=== PATIENT | male | born 1995 | race Caucasian/White ===

== ENCOUNTER 2019-10-05 18:28 | Emergency (ER) | payer OTHER ==
--- NOTE | 2019-10-05 19:18 | EDM.PDOC ---
ED HPI GENERAL MEDICAL PROBLEM - General Chief Complaint: Lower Extremity Injury/Pain Stated Complaint: INJURY TO R FOOT Time Seen by Provider: 10/05/19 18:30 Source of Information: Reports: Patient History Limitations: Reports: No Limitations - History of Present Illness INITIAL COMMENTS - FREE TEXT/NARRATIVE: Patient comes into the emergency department with complaint of a right ankle injury. Was unloading a piece of equipment from the back of his pickup and ended up tripping over a hose and falling onto the ground. He states that his foot hyperflexed. States that he felt a popping sensation right away. Unable to bear weight afterwards. That the pain is more severe if he tries to place any weight on it or move it. Discomfort is noted when resting. He denies any missed or tingling of the right leg. He has limited range of motion due to the pain and discomfort. Patient denies any injuries to that ankle previously. He has no other concerns or complaints. Onset: Sudden Location: Reports: Lower Extremity, Right Quality: Reports: Throbbing Severity: Moderate Improves with: Reports: Rest Worsens with: Reports: Movement Context: Reports: Activity Associated Symptoms: Reports: No Other Symptoms Right Foot Pain Score (Numeric/FACES): 6 - Related Data Allergies Allergy/AdvReac Type Severity Reaction Status Date / Time No Known Allergies Allergy Verified 10/05/19 19:04 Home Meds: Home Meds . [No Known Home Meds] 10/05/19 [History] Past Medical History Other Psychiatric History: insomnia Social & Family History - Tobacco Use Smoking Status *Q: Never Smoker Review of Systems - Review of Systems Review Of Systems: See Below Constitutional: Reports: No Symptoms Eyes: Reports: No Symptoms Ears: Reports: No Symptoms Nose: Reports: No Symptoms Mouth/Throat: Reports: No Symptoms Respiratory: Reports: No Symptoms Cardiovascular: Reports: No Symptoms GI/Abdominal: Reports: No Symptoms Genitourinary: Reports: No Symptoms Musculoskeletal: Reports: No Symptoms Skin: Reports: No Symptoms ED EXAM, GENERAL - Physical Exam Exam: See Below Exam Limited By: No Limitations General Appearance: Alert, WD/WN, No Apparent Distress Eye Exam: Bilateral Eye: EOMI, PERRL Head: Atraumatic, Normocephalic Neck: Normal Inspection, Supple, Non-Tender, Full Range of Motion Respiratory/Chest: No Respiratory Distress, Lungs Clear, No Accessory Muscle Use , Chest Non-Tender Cardiovascular: Normal Peripheral Pulses, Regular Rate, Rhythm Extremities: Limited Range of Motion (right ankle- swelling, limited range of motion due to pain. CMS intact) Neurological: Alert, Oriented, Normal Gait Psychiatric: Normal Affect, Normal Mood Skin Exam: Warm, Dry, Intact, Normal Color Course - Vital Signs Last Recorded V/S: Last Vital Signs Temp 37.5 C 10/05/19 18:35 Pulse 90 10/05/19 18:35 Resp 16 10/05/19 18:35 BP 145/80 H 10/05/19 18:35 Pulse Ox 98 10/05/19 18:35 Departure - Departure Time of Disposition: 20:00 Disposition: Home, Self-Care 01 Condition: Good Clinical Impression: Metatarsal bone fracture Qualifiers: Encounter type: initial encounter Metatarsal bone: fifth Fracture type: closed Fracture alignment: displaced Laterality: right Qualified Code(s): S92.351A - Displaced fracture of fifth metatarsal bone, right foot, initial encounter for closed fracture - Discharge Information *PRESCRIPTION DRUG MONITORING PROGRAM REVIEWED*: Not Applicable *COPY OF PRESCRIPTION DRUG MONITORING REPORT IN PATIENT KERRIE: Not Applicable Instructions: Metatarsal Fracture Referrals: Taylor Ochoa PA-C [Primary Care Provider] - Forms: ED Department Discharge Additional Instructions: 1. Rest 2. Wear cam boot and remain non weightbearing until released from orthopedic speciality 3. Can use Tylenol and Ibuprofen as needed for pain and discomfort 4. Diet as tolerated 5. Activity as tolerated 6. Elevated the injured area above the level of the heart to decrease swelling and discomfort. 7. Use ice 3-4 times a day at 20-minute intervals to help with any swelling and discomfort 8. Follow-up with Orthopedic speciality in one week for a acute slightly displace avulsion fracture at the base of the 5th metatarsal 9. Follow with any questions or concerns 10. Discharge information has been provided regarding your injury Sepsis Event Note - Evaluation Sepsis Screening Result: No Definite Risk - Focused Exam Vital Signs: Vital Signs Temp Pulse Resp BP Pulse Ox 10/05/19 18:35 37.5 C 90 16 145/80 H 98 Date Exam was Performed: 10/05/19 Time Exam was Performed: 20:08 - Assessment/Plan Assessment:: 1. right 5th metatarsal fracture Plan: 1. X-ray completed in the emergency department results reviewed with the patient 2. Ice Applied to the affected limb 3. Medication offered to the patient 4. Education regarding splinting, activity, [id number] medications, and follow-up care provided. 5. All questions and concerns addressed with the patient prior to discharge 6. Cam boot applied to right lower extremity. Pt has crutches at home he will use.
--- NOTE | 2019-10-05 19:56 | CR ---
[id number] RAD/RAD Foot Right 3V Min Exam: RAD Foot Right 3V Min Indication:FALL INJURY Comparison: No prior imaging for comparison. Discussion: Acute avulsion fracture at the base of the 5th metatarsal. There is an 8 mm of separation at the fracture site. Fragment is also displaced laterally 7 mm. No other fractures identified. No dislocation. Impression: Acute slightly displaced avulsion fracture at the base of the 5th metatarsal. Chris Llanos MD 10/05/191954 Thank you for allowing us to participate in the care of your patient.
[2019-10-05] MEDS ORDERED: Take Home: Acetaminophen/HYDROcodone 325-5 MG, 5 Tab Pack PO ONE (20:12)
== END 2019-10-05 20:18 | disposition home or self-care (01) ==
LOC: VM.ED 18:28
DX: S92.351A Displaced fracture of fifth metatarsal bone, right foot, initial encounter for closed fracture (principal); W20.8XXA Other cause of strike by thrown, projected or falling object, initial encounter
CPT/HCPCS: 73630-RT; 99283-25; A9270-GY